=== PATIENT | male | born 1970 | race Two or more races ===

== ENCOUNTER 2024-03-28 11:22 | Emergency (ER) | payer OTHER ==
[~2024-03-28] VITALS: Ht 167.6 cm; Wt 68.0 kg
== END 2024-03-28 12:58 | disposition home or self-care (01) ==
LOC: ER 11:24
DX: S01.01XA Laceration without foreign body of scalp, initial encounter (principal); W45.8XXA Other foreign body or object entering through skin, initial encounter; Y93.89 Activity, other specified; Y92.89 Other specified places as the place of occurrence of the external cause; Y99.9 Unspecified external cause status

== ENCOUNTER 2024-04-04 12:51 | Emergency (ER) | payer OTHER ==
[~2024-04-04] VITALS: Ht 167.6 cm; Wt 68.0 kg
== END 2024-04-04 13:55 | disposition home or self-care (01) ==
LOC: ER 12:52
DX: Z48.02 Encounter for removal of sutures (principal)